=== PATIENT | male | born 1985 | race Hispanic/Latino ===

== ENCOUNTER 2025-04-20 03:28 | Emergency (ER) | payer MEDICAID, SELFPAY ==
[2025-04-20 03:32] VITALS: BP 126/89; PULSE 64; RESP 20; TEMP 36.7; O2SAT 100
[2025-04-20 06:37] VITALS: BP 135/78; PULSE 64; RESP 18; TEMP 36.4; O2SAT 100
--- NOTE | 2025-04-20 07:10 | ED.SKABFB ---
HPI - Skin/Abscess/Foreign Bdy General Chief complaint: Skin/Abscess/Foreign Body Stated complaint: cyst on head Time Seen by Provider: 04/20/25 07:00 History of Present Illness HPI narrative: For the last week or so patient has noticed painful lesions on the top of his head, that seem to be spreading, they are itchy to start with but eventually get bigger, painful, and 1 of them did drain. He cannot think of a cause other than he put on someone's hat as a joke, and the lesions seem to have started sometime afterwards. Related Data Allergies Allergy/AdvReac Type Severity Reaction Status Date / Time No Known Allergies Allergy Verified 04/20/25 03:29 Review of Systems Review of Systems: All systems reviewed & are unremarkable except as noted in HPI and below Exam Narrative: EXAMINATION OF ORGAN SYSTEMS/BODY AREAS: Constitutional: Vital signs per nursing GENERAL:[No acute distress, non-toxic appearing.] HEAD: Normal with no signs of head trauma. EYES: EOMI, conjunctiva normal ENT: Hearing grossly intact LUNGS: Nonlabored breathing. HEART: [Regular rate and rhythm] ABD: [Soft], [nontender to palpation] EXT: Normal range of motion SKIN: Multiple scaly lesions to scalp, some areas with some hair loss and raised with some tenderness NEURO: [Alert and oriented x 3. No gross focal sensory or strength deficits.] PSYCH: Normal affect Course Vital Signs Vital signs: Vital Signs Temperature 98.0 F 04/20/25 03:32 Pulse Rate 64 04/20/25 03:32 Respiratory Rate 20 04/20/25 03:32 Blood Pressure 126/89 04/20/25 03:32 Pulse Oximetry 100 04/20/25 03:32 Oxygen Delivery Room Air 04/20/25 03:32 Temperature 97.6 F 04/20/25 06:37 Pulse Rate 64 04/20/25 06:37 Respiratory Rate 18 04/20/25 06:37 Blood Pressure 135/78 04/20/25 06:37 Pulse Oximetry 100 04/20/25 06:37 Oxygen Delivery Room Air 04/20/25 03:32 MDM - Skin/Abscess/Foreign Bdy MDM Narrative Medical decision making narrative: Patient presents here with multiple lesions on his scalp are slightly itchy and painful with some drainage, my evaluation it was appearing he has tinea capitis, with some areas that look like they may be a kerion; I will start him on antifungals and also anti MRSA in case of bacterial super infection. Pt agreeable to plan with f/u to PCP. Discharge Plan Discharge Clinical Impression: Tinea capitis Patient Disposition: Home Condition: Stable Instructions: Antibiotic Form, Tinea Corporis (ED) Additional Instructions: Please take the medications as prescribed, follow up with your doctor to ensure that it has cleared up. You can return to the ER if symptoms get worse. Patient Language: Portuguese Prescriptions: New terbinafine HCl 250 mg tablet 250 mg PO DAILY 28 Days Qty: 28 0RF sulfamethoxazole-trimethoprim [Bactrim DS] 800-160 mg tablet 1 tablet PO Q12H Qty: 10 0RF Follow-up/Referrals: Tanner Mendosa MD [Physician, Family Practice] - 2 Days PHYSICIAN,[employer]ER [Primary Care Provider, Internal Medicine]
[2025-04-20 07:47] VITALS: RESP 16
== END 2025-04-20 07:47 | disposition home or self-care (01) ==
LOC: ANHED 07:15
PROVIDERS: Emergency Provider Emergency Medicine
DX: B35.0 Tinea barbae and tinea capitis (principal)
CPT/HCPCS: 99283

== ENCOUNTER 2025-07-02 02:20 | Emergency (ER) | payer MEDICAID, SELFPAY ==
[2025-07-02] VITALS (9 sets, daily range): BP systolic 100–143; BP diastolic 67–97; PULSE 67–73; RESP 18–20; TEMP 36.6–36.7; O2SAT 97–100
--- NOTE | ~2025-07-02 | CT_ITS ---
EXAMINATION: CT abdomen pelvis w con DATE: 07/02/2025 03:34 INDICATION: Right upper quadrant abdominal pain. TECHNIQUE: Computed tomography (CT) of the abdomen and pelvis was performed with 100 mL Omnipaque 350 intravenous contrast. Automated exposure control and iterative reconstruction technique were employed. The dose-length product was 362.38 mGy-cm. COMPARISON: None. FINDINGS: The visualized portions of lung bases demonstrate mild atelectasis. No pleural effusion. The heart size is normal. No pericardial effusion. The gallbladder is normal in size. Gallbladder wall thickening is noted. The liver, spleen, pancreas, adrenal glands, and kidneys are normal. There are no dilated loops of bowel. The appendix is normal. There are no pathologically enlarged lymph nodes. There is no free intraperitoneal fluid. There is mild thoracic spondylosis and moderate lumbar spondylosis. There are chronic bilateral L3 pars defects. IMPRESSION: 1. Gallbladder wall thickening, which may be seen with chronic cholecystitis, interstitial edema, or chronic liver disease. Reviewed, dictated and finalized at location E. PADDER IMPRESSION: 1. Gallbladder wall thickening, which may be seen with chronic cholecystitis, i nterstitial edema, or chronic liver disease.
--- OUTSIDE RECORDS SUMMARY | 2025-07-02 02:22 | XMS_ITS | Data Portability ---
Author Organization Freddie [facility] Address [address] [place] [address] Assessment No assessment recorded. Plan of Treatment Reminders Order Date Submit Date Provider Last Modified By Organization Details Last Modified Time Details Appointments None recorded. Lab CBC w/ auto diff 2024 025 [facility], [address] [place] [address], [place], [address], 12:17:11 lipid panel, serum 2024 025 [facility], [address] [place] [address], [place], [address], 12:17:09 CMP, serum or plasma 2024 025 [facility], [address] [place] [address] 2, [place], [address], 12:17:10 TSH, ultra-sen sitive, serum 2024 025 [facility], [address] [place] [address] 2, [place], [address], 12:17:10 HbA1c (hemoglob in A1c), blood 2024 025 [facility], [address] [place] [address] 2, [place], [address], 12:17:11 vitamin D, 25-hydrox y, total, serum 2021 [facility], [address], [place], [address], 14:42:48 vitamin B12 + folate, serum or blood 2021 [facility], [address], [place], [address], 14:42:47 magnesium , serum or plasma 2021 [facility], [address], [place], [address], 14:42:47 HbA1c (hemoglob in A1c), blood 2021 [facility], [address], [place], [address], 14:42:15 TSH + free T4, serum 2021 [facility], [address], [place], [address], 14:42:14 vitamin D, 25-hydrox y, total, serum 2021 [facility], [address], [place], [address], 14:42:15 lipid panel, serum 2021 [facility], [address], [place], [address], 14:42:13 CBC w/ auto diff 2021 [facility], [address], [place], [address], 14:42:14 TSH, ultra-sen sitive, serum 2021 022 [facility], [address], [place] [address], [place], [address], 14:42:15 Referral None recorded. Procedures None recorded. Surgeries None recorded. Imaging None recorded. Medication Orders triamcino lone acetonide 0.1 % topical ointment 2024 025 [facility], [address] [place] [address], [id number], 13:59:30 pantopraz ole 40 mg tablet,de layed release 2024 025 [facility], [address] [place] [address], [id number], 13:59:34 triamcino lone acetonide 0.1 % topical ointment 2021 022 [facility], [address] [place] [address], [id number], 5 09:01:58 Patient TargetsNo targets recorded. Patient Instructions Encounter Date Encounter Id Patient Instructions Last Modified By Organization Details Last Modified Time 11/14/2024 [id number] flank pain: care instructions Not available 11/14/2024 09:45:49 A healthy lifestyle: care instructions Not available 11/14/2024 09:45:49 Reason for Referral None Reported. Results Created Date Observation Date Name Description Value Unit Range Abnormal Flag Note LastModifiedBy Organization Detail LastModifiedTime 11/15/1911/15/2024 LIPID PANEL cholesterol, total 174 mg/dL 100-19 9 Not Available [facility] ([facility]) [address] [facility], [place], [address], 11/15/2024 06:45:46 11/15/19 25 11/15/2024 LIPID PANEL triglyceride s 165 mg/dL 0-149 above high normal Not Available [facility] ([facility]) [address] [place], [address], 11/15/2024 06:45:46 11/15/19 25 11/15/2024 LIPID PANEL HDL cholesterol 48 mg/dL >39 Not Available [facility] ([facility]) [address] [place], [address], 11/15/2024 06:45:46 11/15/19 25 11/15/2024 LIPID PANEL VLDL cholesterol emory 29 mg/dL 5-40 Not Available [facility] ([facility]) [address] [place], [address], 11/15/2024 06:45:46 11/15/19 25 11/15/2024 LIPID PANEL LDL chol calc ([facility]) 97 mg/dL 0-99 Not Available [facility] ([facility]) [address] [place], [address], 11/15/2024 06:45:46 11/15/19 25 11/15/2024 COMP. METAB OLIC PANEL (14) glucose 82 mg/dL 70-99 Not Available [facility] ([facility]) [address] [place], [address], 11/15/2024 06:45:46 11/15/19 25 11/15/2024 COMP. METAB OLIC PANEL (14) BUN 11 mg/dL 6-24 Not Available [facility] ([facility]) [address] [place], [address], 11/15/2024 06:45:46 11/15/19 25 11/15/2024 COMP. METAB OLIC PANEL (14) creatinine 0.97 mg/dL 0.76-1 .27 Not Available [facility] ([facility]) [address] [place], [address], 11/15/2024 06:45:46 11/15/19 25 11/15/2024 COMP. METAB OLIC PANEL (14) eGFR 101 mL/mi n/1.7 3 >59 Not Available [facility] ([facility]) [address] [place], [address], 11/15/2024 06:45:46 11/15/19 25 11/15/2024 COMP. METAB OLIC PANEL (14) BUN/creatini ne ratio 11 9-20 Not Available [facility] ([facility]) [address] [place], [address], 11/15/2024 06:45:46 11/15/19 25 11/15/2024 COMP. METAB OLIC PANEL (14) sodium 141 mmol/ L 134-14 4 Not Available [facility] ([facility]) [address] [facility], [place], [address], 11/15/2024 06:45:46 11/15/19 25 11/15/2024 COMP. METAB OLIC PANEL (14) potassium 4.7 mmol/ L 3.5-5. 2 Not Available [facility] ([facility]) [address] [place], [address], 11/15/2024 06:45:46 11/15/19 25 11/15/2024 COMP. METAB OLIC PANEL (14) chloride 105 mmol/ L 96-106 Not Available [facility] ([facility]) [address] [place], [address], 11/15/2024 06:45:46 11/15/19 25 11/15/2024 COMP. METAB OLIC PANEL (14) carbon dioxide, total 20 mmol/ L 20-29 Not Available [facility] ([facility]) [address] [place], [address], 11/15/2024 06:45:46 11/15/19 25 11/15/2024 COMP. METAB OLIC PANEL (14) calcium 9.8 mg/dL 8.7-10 .2 Not Available [facility] ([facility]) [address] [place], [address], 11/15/2024 06:45:46 11/15/19 25 11/15/2024 COMP. METAB OLIC PANEL (14) protein, total 7.5 g/dL 6.0-8. 5 Not Available [facility] ([facility]) [address] [place], [address], 11/15/2024 06:45:46 11/15/19 25 11/15/2024 COMP. METAB OLIC PANEL (14) albumin 4.7 g/dL 4.1-5. 1 Not Available [facility] ([facility]) [address] [place], [address], 11/15/2024 06:45:46 11/15/19 25 11/15/2024 COMP. METAB OLIC PANEL (14) globulin, total 2.8 g/dL 1.5-4. 5 Not Available [facility] ([facility]) [address] [place], [address], 11/15/2024 06:45:46 11/15/19 25 11/15/2024 COMP. METAB OLIC PANEL (14) bilirubin, total 1.0 mg/dL 0.0-1. 2 Not Available [facility] ([facility]) [address] [place], [address], 11/15/2024 06:45:46 11/15/19 25 11/15/2024 COMP. METAB OLIC PANEL (14) alkaline phosphatase 79 IU/L 44-121 Not Available [facility] ([facility]) [address] [place], [address], 11/15/2024 06:45:46 11/15/19 25 11/15/2024 COMP. METAB OLIC PANEL (14) AST (SGOT) 20 IU/L 0-40 Not Available [facility] ([facility]) [address], [place], [address], 11/15/2024 06:45:46 11/15/19 25 11/15/2024 COMP. METAB OLIC PANEL (14) ALT (SGPT) 20 IU/L 0-44 Not Available [facility] ([facility]) [address] [facility], [place], [address], 11/15/2024 06:45:46 11/15/19 25 11/15/2024 TSH RFX ON ABNOR MAL TO FREE T4 TSH 2.750 uIU/m L 0.450- 4.500 Not Available [facility] ([facility]) [address] [place], [address], 11/15/2024 06:45:47 11/15/1911/15/2024 HEMOG LOBIN A1C hemoglobin A1C 5.7 % 4.8-5. 6 above high normal Predi abete s: 5.7 - 6.4 Diabe penny: >6.4 Glyce gordy contr ol for adult s with diabe penny: <7.0 Not Available [facility] ([facility]) [address] [place], [address], 11/15/2024 06:45:47 11/15/19 25 11/14/2024 CBC WITH DIFFE RENTI AL/PL ATELE T WBC 5.7 x10e3 /uL 3.4-10 .8 Not Available [facility] ([facility]) [address] [place], [address], 11/15/2024 06:45:47 11/15/19 25 11/14/2024 CBC WITH DIFFE RENTI AL/PL ATELE T RBC 5.30 x10e6 /uL 4.14-5 .80 Not Available [facility] ([facility]) [address] [place], [address], 11/15/2024 06:45:47 11/15/19 25 11/14/2024 CBC WITH DIFFE RENTI AL/PL ATELE T hemoglobin 14.7 g/dL 13.0-1 7.7 Not Available [facility] ([facility]) [address] [place], [address], 11/15/2024 06:45:47 11/15/19 25 11/14/2024 CBC WITH DIFFE RENTI AL/PL ATELE T hematocrit 46.0 % 37.5-5 1.0 Not Available [facility] ([facility]) [address] [facility], [place], [address], 11/15/2024 06:45:47 11/15/19 25 11/14/2024 CBC WITH DIFFE RENTI AL/PL ATELE T MCV 87 fL 79-97 Not Available [facility] ([facility]) [address] [facility], [place], [address], 11/15/2024 06:45:47 11/15/1911/14/2024 CBC WITH DIFFE RENTI AL/PL ATELE T MCH 27.7 pg 26.6-3 3.0 Not Available [facility] ([facility]) [address] [place], [address], 11/15/2024 06:45:47 11/15/1911/14/2024 CBC WITH DIFFE RENTI AL/PL ATELE T MCHC 32.0 g/dL 31.5-3 5.7 Not Available [facility] ([facility]) [address] [place], [address], 11/15/2024 06:45:47 11/15/19 25 11/14/2024 CBC WITH DIFFE RENTI AL/PL ATELE T RDW 13.4 % 11.6-1 5.4 Not Available [facility] ([facility]) [address] [place], [address], 11/15/2024 06:45:47 11/15/19 25 11/14/2024 CBC WITH DIFFE RENTI AL/PL ATELE T platelets 323 x10e3 /uL 150-45 0 Not Available [facility] ([facility]) [address] [facility], [place], [address], 11/15/2024 06:45:47 11/15/19 25 11/14/2024 CBC WITH DIFFE RENTI AL/PL ATELE T neutrophils 64 % notest ab. Not Available [facility] ([facility]) [address] [facility], [place], [address], 11/15/2024 06:45:47 11/15/19 25 11/14/2024 CBC WITH DIFFE RENTI AL/PL ATELE T lymphs 22 % notest ab. Not Available [facility] ([facility]) [address] [place], [address], 11/15/2024 06:45:47 11/15/19 25 11/14/2024 CBC WITH DIFFE RENTI AL/PL ATELE T monocytes 10 % notest ab. Not Available [facility] ([facility]) [address] [facility], [place], [address], 11/15/2024 06:45:47 11/15/1911/14/2024 CBC WITH DIFFE RENTI AL/PL ATELE T eos 3 % notest ab. Not Available [facility] ([facility]) [address] [place], [address], 11/15/2024 06:45:47 11/15/19 25 11/14/2024 CBC WITH DIFFE RENTI AL/PL ATELE T basos 1 % notest ab. Not Available [facility] ([facility]) [address] [place], [address], 11/15/2024 06:45:47 11/15/19 25 11/14/2024 CBC WITH DIFFE RENTI AL/PL ATELE T neutrophils (absolute) 3.7 x10e3 /uL 1.4-7. 0 Not Available [facility] ([facility]) [address] [place], [address], 11/15/2024 06:45:47 11/15/1911/14/2024 CBC WITH DIFFE RENTI AL/PL ATELE T lymphs (absolute) 1.3 x10e3 /uL 0.7-3. 1 Not Available [facility] ([facility]) [address] [facility], [place], [address], 11/15/2024 06:45:47 11/15/1911/14/2024 CBC WITH DIFFE RENTI AL/PL ATELE T monocytes(ab solute) 0.6 x10e3 /uL 0.1-0. 9 Not Available [facility] ([facility]) [address] [facility], [place], [address], 11/15/2024 06:45:47 11/15/19 25 11/14/2024 CBC WITH DIFFE RENTI AL/PL ATELE T eos (absolute) 0.2 x10e3 /uL 0.0-0. 4 Not Available [facility] ([facility]) [address] [facility], [place], [address], 11/15/2024 06:45:47 11/15/19 25 11/14/2024 CBC WITH DIFFE RENTI AL/PL ATELE T baso (absolute) 0.0 x10e3 /uL 0.0-0. 2 Not Available [facility] ([facility]) [address] [facility], [place], [address], 11/15/2024 06:45:47 11/15/19 25 11/14/2024 CBC WITH DIFFE RENTI AL/PL ATELE T immature granulocytes 0 % notest ab. Not Available [facility] ([facility]) [address] [facility], [place], [address], 11/15/2024 06:45:47 11/15/19 25 11/14/2024 CBC WITH DIFFE RENTI AL/PL ATELE T immature grans (abs) 0.0 x10e3 /uL 0.0-0. 1 Not Available [facility] ([facility]) [address] [facility], [place], [address], 11/15/2024 06:45:47 Result Notes None recorded. Problems Name Problem SNOMED Code Status Onset Date Resolution Date Notes Provider Name and Address Organization Details Recorded Time Eczema 09040241 Active 2021 left roth Zen Mackenzie PA-C Attn: Accountin g,[address] [facility], [place], [place], [address] [place] [address] 2, [place] - [facility] 2 14:38:08 Family history of diabetes mellitus 183927571 Active 2021 brother Zen Mackenzie PA-C Attn: Accountin g,[address] [facility], [place], [place], [address] [place] [address] 2, [place] - [facility] 2 14:41:21 At increased risk of nutritional deficit 090007020 Active 2021 Zen Mackenzie PA-C Attn: Accountin g,[address] [facility], [place], [place], [address] [place] [address] 2, [place] - [facility] 2 14:42:14 Problem Notes None recorded. Medical Equipment None Reported. Allergies No known drug allergies Medications Name Sig Start Date Stop Date Status Note LastModified by Organization Details LastModified Time acetaminophe n 300 mg-codeine 30 mg tablet TAKE 1 TABLET BY MOUTH FOUR TIMES DAILY NEEDED FOR PAIN 11/14 completed Not Available Not Available Not Available pantoprazole 40 mg tablet,delay ed release Take 1 tablet every day by oral route as needed, for GERD. 2024 active Not Available Not Available Not Avai lable triamcinolon e acetonide 0.1 % topical ointment APLICAR SARAI CAPA TOAN EN LA(S) RADHA(S) AFECTADA (S) POR VIA TOPICA 2 VECES AL NANCY por 2 semanas 2024 active Not Available Not Available Not Avai lable Vitals Date Recorded Body height Body mass index (BMI) Body weight Respiratory rate Provider Name and Address Organization Details Last Updated DateTime 11/14/2024 177.8 cm 25.3 kg/m2 81033.06 g 18 /min Lisa Fuentes [facility] 11/14/2024 08:59:52 Date Recorded Heart rate Body temperature Oxygen saturation Systolic And Diastolic Provider Name and Address Organization Details Last Updated DateTime 11/14/2024 62 /min 98 [degF] 97 % 122/80 mm[Hg] PRO [facility] 5 09:38:43 Date Recorded Body height Body mass index (BMI) Body weight Oxygen saturation Heart rate Systolic And Diastolic Provider Name and Address Organization Details Last Updated DateTime 177.8 cm 24.8 kg/m2 04727.4 8 g 98 % 78 /min 130/80 mm[Hg] Dinorah Moore MA [facility] 14:11:16 Social History Question Answer Notes LastModified by Organizat ion Details LastModified Time Tobacco Smoking Status Never Smoker Dinorah Moore MA null, [facility] 12/07/2021 14:08:21 Are You Blind Or Do You Have Difficulty Seeing? No Information not available 12/07/2021 What Is Your Level Of Caffeine Consumption? Heavy Information not available 12/07/2021 Are You Deaf Or Do You Have Serious Difficulty Hearing? No Information not available 12/07/2021 What Type Of Diet Are You Following? REGULAR Information not available 12/07/2021 What Was The Date Of Your Most Recent Tobacco Screening? 11/14/2024 Information not available 11/14/2024 How Many Children Do You Have? 3 Information not available 12/07/2021 What Is Your Relationship Status? Information not available 12/07/2021 Do You Use Your Seat Belt Or Car Seat Routinely? Yes Information not available 12/07/2021 Do You Have Smoke And Carbon Monoxide Detectors In Your Home? Yes Information not available 12/07/2021 Are You Passively Exposed To Smoke? No Information no t available 12/07/2021 Has Tobacco Cessation Counseling Been Provided? Yes Information not available 12/07/2021 On What Date Was Tobacco Cessation Counseling Provided? 11/14/2024 Information not available 11/14/2024 Sex: Male Functional Status Question Answer Note LastModified by Organizat ion Details LastModified Time Do you use any illicit or recreational drugs? No Information not available 12/07/2021 What is your level of alcohol consumption? None Information not available 12/07/2021 Are you currently employed? Yes Information not available 12/07/2021 Are you able to care for yourself independently? 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 Heavy Information not available 12/07/2021 Mental Status Question Answer Note LastModified by Organization D etails LastModified Time Do you feel stressed (tense, restless, nervous, or anxious, or unable to sleep at night)? [id number] Information not available 12/07/2021 Family History Nothing Reported. Medical History No medical history recorded. Past Encounters Encounter ID Performer Location Encounter Start Date Encounter Closed Date Diagnosis/Indication Diagnosis SNOMED-CT Code Diagnosis ICD10 Code Diagnosis IMO Codes Diagnosis Note [id number] Perla Rocha MD [facility] (Adult Med) [address] [place] [address] 12/07/2021 13:52:57 12/08/2021 10:32:45 Eczema 22828492 L30.9 left roth Family his tory of diabetes mellitus 052366327 Z83.3 At [facility] risk of nutritional deficit 069071354 Z91.89 [id number] MD Delfino Villatoro [address] [place] [address] 11/14/2024 08:49:13 12/24/2024 11:48:24 Overweight 420706371 E66.3 20964 Chronic, uncontroll ed Gastroesop hageal reflux disease without esophagitis 699726914 K21.9 690341 Acute, new Physical examination 588 0005 Z00.00 520058 Flank pain 183686524 R10 .9 42137 Acute on chronic, uncontroll ed Injury of left leg 33219 86279 4712065 S81.331S 76781567 Chronic, itching- Possibly psoriatic as has not healed with creams- Will trial steroid cream Health Concerns Section Related Observation LastModified by Organization Detai ls LastModified Time None Recorded Concern Status LastModified by Organization Details LastModified Time None Recorded Advance Directives Directive None Recorded Payers Insurance Date Sequence Insurance Name Policy Number Policy Ulloa Covered Member ID Ulloa Member ID Guarantor Name 11/14/2024 SLIDING FEE SCHEDULE - DISCOUNT Wale Perea 11/14/2024 1 *SELF PAY* Adore Perea 12/24/2024 1 [place] [facility] Wale Perea [id number] Wale Perea Notes Date Note Type Note Provider Name and Address Organization Details Recorded Time 12/07/2021 text/html ROS as noted in the HPI left lower leg pain, itching , s/p trauma years ago Zen Mackenzie PA-C Attn: Accounting,[address] [place], [address], [place] [facility] 12/11/2021 17:17:26 11/14/2024 text/html 39 yo M with no known PMH who presents with Chest pain- similar in character but more inte- Returned 2 months ago- Happening once a week- Worse with soda and mild and bread- Pain is worse in the night- Makes the patient want to drink water- Endorses bad taste in the mouth in the night Med: Occasional Tylenol Allergies: NKDA Family Hx: mother and brother with cholecystectomy after gallstonesParents:Sib lings:Children: 1 boys (2) 2 twin girls (3), one 17-year-old and 11-year-old from his spouse a previous relationship Social Hx:Alcohol: never drinkerTobacco: NeverMarijuana: NeverOther Substances:Occupation : 12 years of constructionDiet: Mostly protein, beef and tortillasExercise: No as he works hard at his jobSexual Activity: Monogamous relationship with his , currently sexually activeLast STD screening:Home Safety/Intimate Partner Violence: Pain in his left side after accident 5 months agoImmediately after has no pain but for the past 2 monthsHas diffuse pain after the accident that has worsened Iván Love MD Attn: Accounting[address] [place], [address], [facility] 12/24/2024 08:56:54
--- NOTE | 2025-07-02 02:37 | ED.ABDPAIN ---
HPI - Abdominal Pain General Chief Complaint: Abdominal Pain Stated Complaint: RUQ abd pain Time Seen by Provider: 07/02/25 02:27 History of Present Illness HPI narrative: 40-year-old male with no pertinent past medical history presenting to the emergency department today with right upper quadrant pain. He has been having intermittent right upper quadrant pain for last week radiating towards his back and towards his epigastrium. Comes and goes but for last hours been constant. States he has not tried anything for pain management home. Endorses nausea without vomiting. Had 1 episode diarrhea earlier this week. No fever, chills or traumatic injuries. Was otherwise in his normal state of health. Does not take any medications at home. No history of any abdominal surgeries or gallstones to his knowledge. Related Data Allergies Allergy/AdvReac Type Severity Reaction Status Date / Time No Known Allergies Allergy Verified 04/20/25 03:29 Review of Systems Review of Systems: As reviewed above in HPI All systems reviewed & are unremarkable except as noted in HPI and below Exam Narrative: GENERAL: Uncomfortable appearing, bent over complaining of abdominal pain. Mild nausea. HEAD: [Normocephalic, atraumatic.] EYES: [PERRLA and EOMI.] ENT: Nares clear, no rhinorrhea or epistaxis. Mucous membranes moist. NECK: Supple. CHEST: [Clear to auscultation. No respiratory distress.] HEART: [Regular rate and rhythm]. No murmur heard. [Normal peripheral pulses.] ABDOMEN: Soft nondistended abdomen. Reproducible tenderness in the right upper quadrant and right flank. No overlying skin discoloration or bruising. EXTREMITIES: Normal range of motion. [No edema.] SKIN: Warm, dry, no rash. NEURO: [No focal deficits]. Alert and oriented [x3.] PSYCH: [Normal mood and affect.] Course Vital Signs Vital signs: Vital Signs Temperature 36.6 C 07/02/25 02:25 Pulse Rate 67 07/02/25 02:25 Respiratory Rate 20 07/02/25 02:25 Blood Pressure 143/97 H 07/02/25 02:25 Pulse Oximetry 100 07/02/25 02:25 Oxygen Delivery Room Air 07/02/25 02:25 Temperature 36.6 C 07/02/25 02:25 Pulse Rate 67 07/02/25 02:25 Respiratory Rate 20 07/02/25 02:25 Blood Pressure 112/79 07/02/25 05:00 Pulse Oximetry 98 07/02/25 05:00 Oxygen Delivery Room Air 07/02/25 02:25 [facility] Narrative Medical decision making narrative: 40-year-old male with no pertinent past medical history presenting to the emergency department today with right upper quadrant pain. He has been having intermittent right upper quadrant pain for last week radiating towards his back and towards his epigastrium. Comes and goes but for last hours been constant. States he has not tried anything for pain management home. Endorses nausea without vomiting. Had 1 episode diarrhea earlier this week. No fever, chills or traumatic injuries. Was otherwise in his normal state of health. Does not take any medications at home. No history of any abdominal surgeries or gallstones to his knowledge. Patient does have tender epigastric/right upper quadrant abdominal pain. Uncomfortable appearing and having waves of sharp pain. He is afebrile with no tachycardia, tachypnea, hypoxemia or blood pressure concerns. Suspect colic from potential gallstone causing symptomatology. Possibility of cholecystitis. Renal colic versus gallbladder colic versus less likely musculoskeletal causes. Laboratory studies were obtained and he was given Dilaudid fluids and Zofran and re-evaluated. Patient felt significantly improved after medications. Observed here without any recurrence of symptoms. Laboratory studies showed no leukocytosis or anemia. Mildly elevated LFTs but no baseline to compare to. Patient does not drink or use any substances. CT scan independently reviewed and I do not appreciate any active cholecystitis. Gallbladder measures approximately 2 cm x 5-6 cm with no wall thickening. CT scan read by radiology shows equivocal findings. Ambiguous with possible wall thickening mild and possible trace pericholecystic haziness but nothing definite. Otherwise no acute process was noted. I went and re-evaluated the patient at this time with a bedside ultrasound. I was able to obtain adequate views of the gallbladder and cystic structures and his gallbladder wall is only 2.8 mm at maximum thickness in the anterior portion, does not appear distended and only has minimal layering sludge inside the lumen with no gallstone or posterior echo enhancement. No pericholecystic fluid seen and no sonographic Joseph sign was found. Patient had no pain with palpation in this region at this time. I discussed with him the lab findings as well as the equivocal CT scan and my POCUS findings at this time. Patient felt comfortable and actually wants to go home at this time. He was observed here for several hours for any recurrence of pain or symptoms with no issues. I believe after shared decision-making that he would be a good candidate for trial of discharge with outpatient follow-up given his lack of pain and symptoms and plan of action for follow-up with surgery referral and strict return precautions. Differential Diagnosis Differential Diagnosis: Suspect colic from potential gallstone causing symptomatology. Possibility of cholecystitis. Renal colic versus gallbladder colic versus less likely musculoskeletal causes. Lab Data MDM Lab Attestation statement: I personally reviewed the patient's lab results. 07/02/25 02:39 07/02/25 02:39 Labs: Lab Results 07/02/25 Range/Units 02:39 WBC 6.8 (4.5-10.0) K/mm3 RBC 5.20 (4.6-6.20) M/mm3 Hgb 14.7 (14.0-18.0) g/dL Hct 42.4 (42.0-52.0) % MCV 81.5 (80-100) fl MCH 28.3 (26-34) pg MCHC 34.7 (32-36) g/dl RDW 13.8 (11.5-14.5) % Plt Count 325 (150-375) k/mm3 MPV 11.0 H (7.4-10.4) fl Immature Gran % (Auto) 0.6 H (0-0.5) % Neut % (Auto) 57.4 (45.5-73.1) % Lymph % (Auto) 28.1 (18.3-44.2) % [place] % (Auto) 10.4 H (2.6-8.5) % Eos % (Auto) 2.8 (0-4.4) % Baso % (Auto) 0.7 (0.2-1.2) % Lymph # (Auto) 1.92 (0.9-3.2) K/mm3 [place] # (Auto) 0.7 H (0.1-0.6) K/mm3 Eos # (Auto) 0.2 (0-0.3) K/mm3 Baso # (Auto) 0.1 (0.0-0.1) K/mm3 Abs Immat Gran (auto) 0.04 H (0.00-0.031) K/mm3 Absolute Neuts (auto) 3.9 (1.3-6.7) K/mm3 Absolute Nucleated RBC 0.000 (0.0-0.012) K/mm3 Nucleated RBC % 0.0 (0.0-0.2) % Sodium 140 (137-145) mmol/L Potassium 3.7 (3.4-5.0) mmol/L Chloride 104 (98-107) mmol/L Carbon Dioxide 26 (22-30) mmol/L Anion Gap 10 (4-12) mmol/L BUN 14 (9-20) mg/dL Creatinine 1.09 (0.7-1.3) mg/dL Estim Creat Clear Calc 79 ml/min Estimated GFR > 60 (59 - ) Glucose 131 H (65-110) mg/dL Calcium 9.5 (8.4-10.2) mg/dL Total Bilirubin 1.7 H (0.2-1.3) mg/dL AST 170 H (17-59) U/L ALT 105 H (6-50) U/L Alkaline Phosphatase 60 (38-126) U/L Total Protein 8.4 H (6.3-8.2) g/dL Albumin 4.8 (3.5-5.1) g/dL Lipase 140 (23-300) U/L Urine Color Yellow (Yellow) Urine Appearance Clear (Clear) Urine pH 5.5 (5.0-9.0) Ur Specific [place] 1.019 (1.001-1.035) Urine Protein Negative (Negative) mg/dL Urine Glucose (UA) Negative (Negative) mg/dL Urine Ketones Negative (Negative) mg/dL Ur Blood (Man) Negative (Negative) Urine Nitrate Negative (Negative) Urine Bilirubin Negative (Negative) Urine Urobilinogen 1.0 (<2.0) mg/dL Leukocyte Esterase Rfl Negative (Negative) [place] Imaging Data Attestation: I personally reviewed and interpreted this imaging study as follows: My impression: Equivocal CT findings with possible mild wall thickening of the gallbladder with trace pericholecystic haziness. My personal bedside ultrasound shows no gallbladder distension, minimal [place] sludge dependently in the gallbladder with no thickened gallbladder wall, pericholecystic fluid or any sonographic Joseph sign. Discharge Plan Discharge Clinical Impression: Abdominal pain, RUQ, Biliary colic Patient Disposition: Home Condition: Stable Instructions: Antibiotic Form, Biliary Colic (ED) Additional Instructions: Laboratory studies show some mildly elevated liver function tests but no elevated white count or any signs of active infection. You had no fever any tachycardia. Your CT scan was equivocal with some very nonspecific findings but your bedside ultrasound was reassuring and your pain is completely resolved. Symptoms could be related to gallbladder disease but no emergencies found at this time. If you have any recurrence of that severe abdominal pain, intractable nausea, vomiting, developing fevers, inability to tolerate oral intake or any other issues please return to the ER at that time otherwise you have been given a general surgeon to follow with in clinic for further evaluation and further potential interventions as warranted. We have sent you home with some pain medications as well as nausea controlling medications. Patient Language: Urdu Prescriptions: New hydrocodone-acetaminophen 5-325 mg tablet 1 tablet PO Q8H PRN (Reason: pain) Qty: 14 0RF ondansetron 4 mg tablet,disintegrating 4 mg PO Q8H PRN (Reason: nausea and vomiting) Qty: 20 0RF No Action terbinafine HCl 250 mg tablet 250 mg PO DAILY 28 Days Qty: 28 0RF sulfamethoxazole-trimethoprim [Bactrim DS] 800-160 mg tablet 1 tablet PO Q12H Qty: 10 0RF Follow-up/Referrals: PHYSICIAN,TITLE SEARCH MANAGER [Primary Care Provider, Internal Medicine] Jesus Schwarz DO [Physician, General Surgery] - 1 Week Referral Note: Biliary colic Time of Disposition: 04:59
[2025-07-02 02:46] LABS: Hematocrit 42.4 % (42.0-52.0); Hemoglobin 14.7 g/dL (14.0-18.0); Immature Granulocyte Percent A 0.6 % (0-0.5); Lymphocytes Absolute Auto 1.92 K/mm3 (0.9-3.2); Mean Corpuscular HGB Conc 34.7 g/dl (32-36); Mean Corpuscular Hemoglobin 28.3 pg (26-34); Mean Corpuscular Volume 81.5 fl (80-100); Nucleated Red Blood Cells Absolute Auto 0.000 K/mm3 (0.0-0.012); Nucleated Red Blood Cells Perc 0.0 % (0.0-0.2); Platelet Count Result 325 k/mm3 (150-375); Red Blood Count 5.20 M/mm3 (4.6-6.20); White Blood Count 6.8 K/mm3 (4.5-10.0)
[2025-07-02] MEDS: ONDANSETRON INJ 4 MG/2 ML VIAL IV PUSH (02:46)
[2025-07-02] MEDS: HYDROmorphone HCL INJ (*CRX) 1 MG/ML SYR IV PUSH (02:47)
[2025-07-02] MEDS: LACTATED RINGERS 1,000 ML 999 ML IV CONT (02:47)
[2025-07-02 02:52] LABS: Add Urine Microscopic? NO; Appearance Urine Clear (Clear); Glucose Urine UA Negative (Negative); Leukocyte Esterase Ur Negative LEU/UL (Negative); Nitrate Urine Negative (Negative); Specific Grav Ur 1.019 (1.001-1.035)
[2025-07-02 03:02] LABS: Alanine Aminotransferase 105 U/L (6-50); Albumin Level 4.8 g/dL (3.5-5.1); Alkaline Phosphatase 60 U/L (38-126); Anion Gap 10 mmol/L (4-12); Aspartate Amino Transferase 170 U/L (17-59); Bilirubin,Total 1.7 mg/dL (0.2-1.3); Blood Urea Nitrogen 14 mg/dL (9-20); Calcium 9.5 mg/dL (8.4-10.2); Carbon Dioxide 26 mmol/L (22-30); Chloride 104 mmol/L (98-107); Estimated CRCL calculation 79 ml/min; Estimated Glomerular Filt Rate > 60; Glucose 131 mg/dL (65-110); Lipase 140 U/L (23-300); Potassium 3.7 mmol/L (3.4-5.0); Sodium 140 mmol/L (137-145); Total Protein 8.4 g/dL (6.3-8.2)
== END 2025-07-02 05:34 | disposition home or self-care (01) ==
PROVIDERS: Emergency Provider Student in an Organized Health Care Education/Training Program
DX: R10.11 Right upper quadrant pain (principal); R93.2 Abnormal findings on diagnostic imaging of liver and biliary tract
CPT/HCPCS: 36415; 74177; 80053; 81003; 83690; 85025; 96361; 96374; 96375; 99284; J1171; J2405; J7120; Q9967